=== PATIENT | male | born 1985 | race African-American/Black ===

== ENCOUNTER 2023-06-26 00:19 | Emergency (ER) | payer MEDICAID, OTHER ==
[~2023-06-26] VITALS: Ht 185.4 cm; Wt 105.0 kg
[2023-06-26 00:20] VITALS: BP 125/81; PULSE 94; RESP 22; TEMP 98.1; O2SAT 96
== END 2023-06-26 02:30 | disposition left against medical advice (07) ==
LOC: ER 02:03
DX: Z00.00 Encounter for general adult medical examination without abnormal findings (principal); R68.89 Other general symptoms and signs; Z93.0 Tracheostomy status
CPT/HCPCS: 99281; Z7610

== ENCOUNTER 2023-07-06 15:41 | Emergency (ER) | payer OTHER ==
[~2023-07-06] VITALS: Ht 185.4 cm; Wt 97.5 kg
[2023-07-06 16:02] VITALS: BP 111/70; PULSE 67; RESP 16; TEMP 98.3; O2SAT 99
[2023-07-06] MEDS ORDERED: SULF1TAB48 MT (16:32)
[2023-07-06] MEDS ORDERED: CEPH500T MT (16:32)
== END 2023-07-06 16:51 | disposition home or self-care (01) ==
LOC: ER 15:41
DX: L03.90 Cellulitis, unspecified (principal)
CPT/HCPCS: 99283